=== PATIENT | female | born 1995 | race Caucasian/White ===

== ENCOUNTER → 2020-09-08 11:09 | Outpatient (CLI) | payer MEDICAID, SELFPAY ==
[2020-09-08 13:36] LABS: Absolute Lymphocyte Count 1.43 X10^3/uL (0.83-4.51); Absolute Neutrophil Count 5.1 X10^3/uL (2.0-7.7); Basophil# 0.02 X10^3/uL; Basophil% 0.3 % (0-1); Eosinophil# 0.06 X10^3/uL; Eosinophils% 0.8 % (0-5); Hematocrit 36.2 % (37-47); Hemoglobin 12.3 g/dL (12.0-15.0); Lymphocyte # 1.43 X10^3/ul (0.83-4.51); Lymphocyte % 20.1 % (19-41); Mean Corpuscular Hgb 31.5 pg (27.0-32.0); Mean Corpuscular Volume 92.6 fL (81-99); Mean Platelet Vol. 11.4 fl (6.2-12.0); Monocyte# 0.43 X10^3/uL; Monocyte% 6.1 % (0-10); NRBC Flagged by Analyzer 0 % (0-5); Neutrophil # 5.11 X10^3/uL (2.7-7.7); Platelet Count 230 K/mm3 (150-450); RBC Distribution Width CV 13.5 % (11.6-14.6); RBC Distribution Width SD 45.5 fl (35.1-43.9); Red Blood Count 3.91 M/mm3 (4.2-5.4); White Blood Count 7.1 K/mm3 (4.4-11.0)
[2020-09-08 14:25] LABS: HIV - WCH Non-Reactive (Nonreactive); Hepatitis B Surface Antigen Non-Reactive (Nonreactive); Hepatitis C Antibody Non-Reactive (Nonreactive); Rubella IgG Non-Reactive (Nonreactive); Syphilis Antibodies Non-reactive
[2020-09-10 04:08] LABS: Chlamydia By Nucleic Acid AMP Negative (Negative)
[2020-09-10 12:48] LABS: Gonococcus By Nucleic Acid AMP Negative (Negative)
[2020-09-13 17:18] LABS: HPV APTIMA, High Risk Positive (Negative); HPV Reflexed? YES, CHARGE PATIENT
== END ==
PROVIDERS: Visit Provider Student in an Organized Health Care Education/Training Program
DX: Z34.82 Encounter for supervision of other normal pregnancy, second trimester (principal)
CPT/HCPCS: 36415; 85025; 86703; 86762; 86780; 86803; 87086; 87340; 87491; 87591; 87624; 88175; G0145

== ENCOUNTER → 2020-09-21 14:29 | Outpatient (CLI) | payer MEDICAID, SELFPAY ==
[2020-09-27 17:15] LABS: CF, Screen Comment: (.)
== END ==
PROVIDERS: Visit Provider Student in an Organized Health Care Education/Training Program
DX: Z13.71 Encounter for nonprocreative screening for genetic disease carrier status (principal)
CPT/HCPCS: 36415; 81220

== ENCOUNTER → 2020-10-21 08:50 | Outpatient (CLI) | payer MEDICAID, SELFPAY ==
[2020-10-21 10:55] LABS: Glucose Challenge Gest 1H 50g 108 mg/dL (70-140)
== END ==
PROVIDERS: Visit Provider Student in an Organized Health Care Education/Training Program
DX: Z34.82 Encounter for supervision of other normal pregnancy, second trimester (principal)
CPT/HCPCS: 36415; 82950

== ENCOUNTER → 2020-11-18 10:27 | Outpatient (CLI) | payer MEDICAID, SELFPAY ==
[2020-11-18 10:37] LABS: Hematocrit 36.2 % (37-47); Hemoglobin 12.3 g/dL (12.0-15.0); Mean Corpuscular Hgb 31.9 pg (27.0-32.0); Mean Corpuscular Volume 93.8 fL (81-99); Platelet Count 219 K/mm3 (150-450); RBC Distribution Width CV 12.5 % (11.6-14.6); RBC Distribution Width SD 43.2 fl (35.1-43.9); Red Blood Count 3.86 M/mm3 (4.2-5.4); White Blood Count 7.6 K/mm3 (4.4-11.0)
[2020-11-18 10:39] LABS: Scan Indicated on CBC? Y/N NO
== END ==
PROVIDERS: Visit Provider Obstetrics & Gynecology
DX: Z34.83 Encounter for supervision of other normal pregnancy, third trimester (principal)
CPT/HCPCS: 36415; 85027

== ENCOUNTER 2020-12-20 17:45 | Outpatient (CLI) | payer MEDICAID, SELFPAY ==
[2020-12-20 17:59] VITALS: BP 123/68; PULSE 85; TEMP 37.3; O2SAT 97
[2020-12-20 18:01] VITALS: BMI 26.2
[2020-12-20 19:05] LABS: Bacteria 0 SEEN /hpf (None Seen); Mucous, Urine 0 SEEN /hpf (<or=2+); Red Blood Cells-Urine 0 SEEN /hpf (0-5); Squamous Epithelial Cells - UA 0 SEEN /hpf (5-10); White Blood Cells 0 SEEN /hpf (0-5)
[2020-12-20 19:08] LABS: Color, Urine Yellow (Yellow); Glucose, Dipstick Normal (Normal); Ketone-Dipstick Negative (Negative); Leukocyte Esterase-Dipstick Negative /ul (Negative); Nitrite-Dipstick Negative (Negative); Occult Blood-Urine Negative /ul (Negative); Protein-Dipstick Negative (Negative); Specific Gravity, Urine 1.015 (1.002-1.030); Urine Bilirubin Dipstick Negative (Negative); Urine Clarity Sl. Cloudy (Clear); Urine Urobilinogen Normal (Normal)
[2020-12-20 19:16] LABS: Amorphous Sediment 1+
--- NOTE | 2020-12-20 19:19 | OB.TRI.NOTE ---
HPI - General HPI Narrative OLLIE TURNER, is a 25 F G1 who presents at 33 1/7 weeks gestation with c/o L. lower abdominal pain and contractions. Pain started at 11 AM this morning and lasted x2 hours with spontaneous resolution. It again recurred this evening with severity 7 out of 10 and patient came to the hospital. She vomited x2. She had one prior similar episode approximately 2 weeks ago. She reports a history of a left ovarian cyst diagnosed by maternal- medicine. problem list: 1. Sick centimeter left ovarian cyst 2. Late to care 3. Rubella nonimmune 4. 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 Cystic fibrosis carrier negative, SMA carrier negative Maternal Data Information AMBREEN Calculator Estimated Delivery Date Method Current WG Current Estimate 02/06/21 Manual 33w 1d PFSH PFSH Home Medications prenat.vits,stephan,[id number] [ Vitamin] 1 tab PO DAILY 12/20/20 [History Last Taken 12/20/20 08:00] Allergy/AdvReac Type Severity Reaction Status Date / Time No Known Allergies Allergy Verified 12/20/20 18:07 Social History (Updated 12/20/20 @ 19:[address] Kell Montero MD) Smoking Status: Former smoker History 1 Elective abortions Hx Para 0 Spontaneous abortions Hx # Term Pregnancies Ectopic pregnancies Hx # Pregnancies Multiple births # of living children ROS Constitutional Constitutional: Denies chills or fever(s) Cardiovascular Cardiovascular: Denies chest pain Respiratory/Chest Respiratory/Chest: Denies dyspnea Genitourinary Genitourinary: Reports abdominal discomfort; Denies anuria, burning urination, difficulty urinating, dysuria, hematuria, low back pain or urinary frequency Musculoskeletal Musculoskeletal: Denies muscle spasms Physical Exam Const alert, oriented x3 and no apparent distress General Appearance: cooperative and comfortable HEENT normocephalic Resp normal respiratory effort, normal air movement and clear to auscultation bilaterally Cardio regular rate, regular rhythm, S1 normal heart sound and S2 normal heart sound GI normal to inspection, nondistended, normoactive bowel sounds, soft to palpation and non-distended Inspection: gravid no CVA tenderness Narrative: No suprapubic tenderness Back/Spine no CVA tenderness Neuro oriented x3 NST FHR Rate Baby A Baseline: 120 Variability:: Moderate Accelerations:: None Decelerations:: None NST Reactive:: Yes FHR Category:: Category I Uterine Activity:: 0-2/10 Assessment & Plan (1) Left sided abdominal pain: COMMENT: Dfdx UTI, ovarian torsion, muscle spasm PLAN: Benign abdominal exam U/A, Ucx sent CBC with diff f/u results
[2020-12-20 19:23] VITALS: PULSE 77; TEMP 36.6; O2SAT 98
[2020-12-20 19:25] VITALS: BP 117/70; PULSE 72
[2020-12-20 19:38] LABS: Absolute Lymphocyte Count 1.06 X10^3/uL (0.83-4.51); Absolute Neutrophil Count 7.1 X10^3/uL (2.0-7.7); Basophil# 0.02 X10^3/uL; Basophil% 0.2 % (0-1); Eosinophil# 0.02 X10^3/uL; Eosinophils% 0.2 % (0-5); Hematocrit 38.2 % (37-47); Hemoglobin 12.7 g/dL (12.0-15.0); Lymphocyte # 1.06 X10^3/ul (0.83-4.51); Lymphocyte % 12.1 % (19-41); Mean Corp Hgb Conc 33.2 g/dL (32-36); Mean Corpuscular Hgb 31.6 pg (27.0-32.0); Mean Platelet Vol. 11.1 fl (6.2-12.0); Monocyte# 0.57 X10^3/uL; Monocyte% 6.5 % (0-10); NRBC Flagged by Analyzer 0 % (0-5); Neutrophil # 7.05 X10^3/uL (2.7-7.7); Neutrophil % 80.3 % (47-70); Platelet Count 209 K/mm3 (150-450); RBC Distribution Width CV 12.6 % (11.6-14.6); RBC Distribution Width SD 43.7 fl (35.1-43.9); Red Blood Count 4.02 M/mm3 (4.2-5.4); White Blood Count 8.8 K/mm3 (4.4-11.0)
[2020-12-20 21:36] VITALS: TEMP 36.7
[2020-12-20 22:30] LABS: Fetal Fibronectin Negative
--- NOTE | 2020-12-22 21:37 | OB.TRI.NOTE ---
HPI - General HPI Narrative OLLIE TURNER, is a 25 F G1 @ 33 1/7 wga Pt later c/o contractions as well as right axillary swelling and soreness. Maternal Data Information AMBREEN Calculator Estimated Delivery Date Method Current WG Current Estimate 02/06/21 Manual 33w 3d PFSH PFSH Home Medications dicloxacillin 500 mg PO Q6H #28 cap 12/20/20 [Rx Last Taken Unknown] prenat.vits,stephan,[id number] [ Vitamin] 1 tab PO DAILY 12/20/20 [History Last Taken 12/20/20 08:00] Allergy/AdvReac Type Severity Reaction Status Date / Time No Known Allergies Allergy Verified 12/20/20 21:44 Social History (Updated 12/20/20 @ 19:[address] Kell Montero MD) Smoking Status: Former smoker History 1 Elective abortions Hx Para 0 Spontaneous abortions Hx # Term Pregnancies Ectopic pregnancies Hx # Pregnancies Multiple births # of living children Physical Exam Const alert, oriented x3 and no apparent distress Chest inspection of chest normal, inspection of breasts normal and palpation of breasts normal Chest Narrative: There is a 2cm erythematous nodule in the mid to upper axilla with tenderness Breast/Axilla Inspection: abnormal inspection of the axilla and other Breast/Axilla Palpation: abnormal palpation of the axilla Resp normal respiratory effort and normal air movement Narrative: 1/0/-4 . posterior, firm NST FHR Rate Baby A NST Reactive:: Yes FHR Category:: Category I Uterine Activity:: q2min Assessment & Plan (1) Mastitis during : PLAN: Exam c/w axillary boil - possible abscess of accessory breast tissue Rx Dicloxicillin (2) False labor before 37 completed weeks of gestation: PLAN: Cervix non-laboring FFN neg d/c'd home Charges/Coding Visit Charges Office Visits / Consults: [id number] OV L4 New
== END 2020-12-20 22:47 | disposition home or self-care (01) ==
LOC: WPOUT 17:58 → WP 17:58
PROVIDERS: Obstetrics & Gynecology; Visit Provider Obstetrics & Gynecology
DX: O26.893 Other specified pregnancy related conditions, third trimester (principal); R10.32 Left lower quadrant pain; Z3A.33 33 weeks gestation of pregnancy; Z87.891 Personal history of nicotine dependence
CPT/HCPCS: 36415; 59025; 59050; 81001; 82731; 85025; 87086; 99218; G0378

== ENCOUNTER → 2021-01-14 10:08 | Outpatient (CLI) | payer MEDICAID, SELFPAY | PROVIDERS: Visit Provider Obstetrics & Gynecology | DX: Z36.85 Encounter for antenatal screening for Streptococcus B (principal) | CPT/HCPCS: 87081 ==

== ENCOUNTER 2021-02-04 08:05 | Inpatient (IN) | payer MEDICAID, SELFPAY ==
[2021-02-04] VITALS (59 sets, daily range): BP systolic 92–142; BP diastolic 51–84; PULSE 65–119; RESP 14–18; TEMP 36.1–37.1; O2SAT 96–100; BMI 28.3
--- NOTE | 2021-02-04 | OV_PTH ---
PATIENT: OLLIE TURNER LOC: [facility] U#:[id number] AGE/SX: 25/ ROOM: WP006 RE02/04/[address]: Dr. Gerald Wesley MD : 1995 BED: 1 DIS: 02/06/2021 SPEC #: [id number] RECD: 02/07/21 11:58 STATUS: JESUS JULISSA #: [id number] DUANE: 02/04/21 00:[address]: Gerald Wesley DEPT: SURGICAL PATHOLOGY RECD BY: Remigio Cerna Tissues: OVARIAN CYST Procedures: Surgery Specimen Level V HEADER OPERATION: Left ovarian cyst excision PRE-OP DIAGNOSIS: Left ovarian cyst TISSUE SUBMITTED: 4-5 cm left ovarian cyst with about 1/3 ovary attached MICROSCOPIC DIAGNOSIS Left ovarian cyst, excision: Serous cystoadenofibroma. AM:yudith 02/08/2021 COMMENT Case has been reviewed in consultation with Dr. Morillo who concurs with the above diagnosis. IDC:[id number] MICROSCOPIC DESCRIPTION Slides are reviewed. GROSS DESCRIPTION Received in fixative is one container labeled with the patient's name and designated left ovarian cyst. The specimen consists of a collapsed cystic structure measuring 5.5 x 4.2 x 0.8 cm. The external surface is inked and the specimen serially sectioned to reveal a wall that varies in thickness from 0.1 to 0.2 cm. No nodularities are identified. The specimen is serially sectioned and totally submitted in four cassettes. / AM:yudith 02/07/21 TC:1 CPT: 44081
[2021-02-04 08:02] LABS: ROM Internal Control Test YES-OK TO RESULT pt. (Internal QC)
[2021-02-04 08:04] LABS: ROM Patient Test POSITIVE (Negative)
--- NOTE | 2021-02-04 08:56 | PCM.HP.BLA ---
History and Physical Date of Admission: 02/04/21 ACOG ANTEPARTUM RECORD - HISTORY AND PHYSICAL (02/04/2021) Name: LATISHA TURNER History of this : This is a 25 year old [id number] presents at 39 wks + 5 days gestation in active labor with spontaneous rupture membranes. OB Physician: Ceci Velázquez 's Physician: UNDECIDED ...................................................................... : 1995 Age: 25 Address: [address] [place] [address] Phone: ([phone] Insurance Carrier: [employer] CLAIMS DEPT [id number] Emergency Contact: MELLO MEJÍA [phone] ...................................................................... Final AMBREEN: 02/06/21 By Ultrasound: LMP PARITY: (G-Total Pregnancies P-Fullterm,Premature,Induced AB,Spont AB, Ectopics, Multiple,Living) AMBREEN CONFIRMATION: Final AMBREEN: 02/06/21 OB PROBLEM LIST: Declines genetic screening. Carrier screen drawn. EPDS on 09/21/2020 = 3 ECHO with MFM wnl L. ovarian cyst Late to care Plans to breastfeed - office class enc Prefers not to have an epidural, but not opposed. Childbirth class enc. Rubella Non-Immune, needs MMR pp ALLERGIES: No Known Allergies MEDICATIONS: 28 mg iron-800 mcg tablet One tablet by mouth once daily SOCIAL HISTORY: Smoking - used to smoke but quit Alcohol Use - denies drinking Diet - moderate, balanced diet Lifestyle - moderate stress lifestyle and single Exercise - active work Employer - [employer] in [place] Job Description - banquet food server Illicit Drug Use - denies use of street drugs Sexual Activity - ACTIVE ONE PARTNER Residence - Lives on her own Place of - [place], [place] Hours Worked - 28+ hrs per week Spouse-Sig Other Name - Mello Mejía Spouse-Sig Other Occupation - [employer] -- Cook Spouse-Sig Other Phone No - [phone] PRIOR DELIVERY HISTORY DEL DATE GEST LAB WT LB WT OZ TYPE ANES LABOR TX ANTEPARTUM FLOW CHART VISIT GE RTC FU F F MA U U DATE WK MD WKS HT PN HR M SS BP ED WT MA GL D EF ST __ ____ ___ __ __ ___ __ __ __ ___ __ __ __ ___ __ Jan 39 JM 1 39 V + + 120/80 sl 158 - - 2 60 -1 15 Jan 38 JMW 1 36 V + + 114/80 0 158 - - 2 25 -2 08 Jan 37 JMW + 130/72 sl 155 tr - 03 Jan 36 JM 1 36 V + + 116/74 sl 153 - - cl Dec 34 JM 2 34 V + + 122/76 0 153 tr - 06 Dec 32 JM 2 32 V + + 102/66 0 148 - - Dec 10 JM 2 30 - on + 108/76 sl 145 tr - 08 Dec 08 SHM 2 27 V + + 108/70 0 142 tr ne Oct 24 CM 4 24 + + 139/78 0 139 ne ne 21 September 20 CM 4 + + 116/68 0 132 ne ne ANTEPARTUM NOTE(S): Feb 03 2021: reviewed FM, SROM, and labor Jan 26 2021: Ctxs-occas, Good FM Jan 19 2021: Good FM, Feeling Well Jan 14 2021: GBS and LARC Dec 31 2020: back pain, George Weaver Dec 17 2020: Dec 02 2020: Good FM,Admits being tired, Nov 18 2020: Oct 21 2020: GCT and SMA redrawn today Sep 21 2020: glucola given COMPREHENSIVE ANTEPARTUM NOTE(S): Feb 03 2021: 39wk, no complaints. Jan 19 2021: H taken to OB.tkg Jan 14 2021: Latisha is here for a PNV at 36 wks. Good FM. Sl edema present in b/l ankles. Cramping and ctx's occasionally along w/ pelvic pressure. GBS today, consent signed. LARC reviewed, pt interested in Liletta IUD. Opted for a cervix check. After discussing IUD, pt has decided to wait for her 6 week visit to have Liletta placed. Jan 14 2021: 36 weeks, GBS collected today. Dec 31 2020: Latisha is here for a PNV at 34 weeks. Good FM. No edema present at this time. Mild back pain, occasional george weaver. No other concerns expressed. Dec 31 2020: 34 weeks, no complaints. GBS next visit. Dec 17 2020: Latisha presents today for PNV 32 wks +5day. Reports good FM. No edema present today. States she is staying well hydrated as well as keeping food down. Expressed she has some soreness in upper abdomen along with some back pain, she lays down and the pain subsides. Medications and allergies up to date. No other complaints or concerns expressed. Dec 17 2020: 32wks, no complaints. Dec 02 2020: 30 weeks, 1 hour GTT within normal limits. Nov 18 2020: Latisha is here for PNV. Nausea mostly subsided. Willl occasionally have episodes of heaving or vomiting associated with smells or certain foods. Otherwise, able to maintain diet/fluids. Having good FM. No edema present today. Urine tr/neg. LSS Nov 18 2020: Reports vomiting episodes 1-2x/month. Overall doing well. Considering childbirth class. Discussed class schedule. Pt continues working and will move in the next month. PTL, ROM, FM precautions discussed. SMA screen neg, Glucola wnl. CBC today. Oct 21 2020: Latisha is here for PNV. Had SMA redrawn and GCT completed today. Feeling well with good FM. Voices no concerns today. Urine neg/neg. LSS Oct 21 2020: 24/4w visit. Glucola done today, SMA redrawn. Echogenic focus in abdomen, unable to see 4chamber view questionable ASD - had ECHO with MFM, normal. No further follow up. F/u 4w. CM Sep 21 2020: Latisha is here for PNV following US. Genetics packet given. States she is feeling much better and feels she is past the N/V. No othe compliants or concerns. No edema present today. Having good FM. Glucola given with instructions for next apt. Voiced understanding. Urine neg/neg. LSS Sep 21 2020: 20/2w visit. Anatomy US done. Echogenic focus in abdomen, questionable bowel. Unable to see 4 chamber heart view, with questionable ASD. Discussed possible etiologies. Discussed repeating US in 4 weeks here in office and if persistent abnormaliites, inability to see 4chamber heart view will refer to MFM OR MFM referral now. Pt elects MFM referral now. Denies genetic hx. Desires carrier screening, Sep 21 2020: Latisha is here for her NOB visit following her comprehensive US and PNV, she is accompanied by SO/FOB, Mello Mejía. He seems to be supportive, and this is his first child. They both report good family support. Latisha lives on her own, but they state that they are planning to move in together. Latisha is a 25 year old with an AMBREEN of 02/06/2021, current GA is 20 w 2 d. She states that she is fee Sep 08 2020: Latisha is a 25 yr old GR 1, here w/FOB, 24 yr old Miles Mejía for Missed Menses. She had a period sometime in April, unsure of date. Reports being seeing several x @ [facility], given AMBREEN 02/06/21 which makes her 18 wks 3 days; she is feeling FM. Hx Nausea and Vomiting, but has resolved. No cramping. No bleeding. Taking a PNV. No medical problems. No surgeries. No Hx Depress REVIEW OF SYSTEMS: GENERAL - Denies fever, or chills SKIN - Denies rash, new skin lesions, or change in moles EYES - Denies blurred vision, or change in visual acuity EARS - Denies ear pain, or difficulty hearing NOSE - Denies nasal congestion, discharge, or bleeding MOUTH - Denies sore throat, or difficulty swallowing NECK - Denies pain or swelling RESPIRATORY - Denies shortness of breath, cough, wheezing CARDIOVASCULAR - Denies palpitations, chest pain, orthopnea, PND, peripheral edema, syncope or claudication GASTROINTESTINAL - Denies nausea, vomiting, diarrhea, constipation, Denies abdominal pain, melena and or bright red blood GENITOURINARY - Denies dysuria, frequency of urination, urgency, or hesitancy MUSCULOSKELETAL - Denies joint or muscle pain, or back pain NEUROLOGICAL - Denies localized numbness, weakness, or tingling PSYCHIATRIC - Denies depression, anxiety, substance abuse or suicide attempts ENDOCRINE - Denies heat or cold intolerance, weight loss or gain, increasing thirst HEMATO-IMMUNOLOGIC - Denies easy bruising, bleeding, oral ulcerations or recurrent infections GENETICS SCREENING: Age 35+ years: No Thalassemia: No Neural Tube Defect: No Down Syndrome: No SUMAYA-SACHS: No Sickle Cell Disease: No Hemophilia: No Musc. Dystrophy: No Cystic Fibrosis: No-declines screening [place] Chorea: No Mental Retardation: No Fragile X: No Other genetic: No Other defects: No SABs/still births: No Drugs since LMP: No INFECTION HISTORY: High risk AIDS: No High risk Hepatitis: No Exposed to TB: No Exposed to Herpes: No Rash/viral illness since LMP: No History of STD: No MENSTRUAL HISTORY: *Menarche (Age Onset): 15* PAST SUMMARY: PARITY: 1. Total Pregnancies............ 1 2. Full Term Pregnancies........ 0 3. Premature.................... 0 4. Abortions - Induced.......... 0 5. Abortions - Spontaneous...... 0 6. Ectopics..................... 0 7. Multiple Births.............. 0 8. Living Children.............. 0 PHYSICAL EXAMINATION General Appearence: 25 yo female in no acute distress Vital Signs: AF, VSS Heart: RRR without rubs or gallops Lungs: CTA x 2 Breasts: deferred Abdomen: gravid Pelvis: Cervix: 2-3/60 gross rupture of membranes Presentation: cephalic Station: -2 Fetus: Size: AGA Movement: present Heart: present LAB TEST(S) ORDERED SINCE:05/12/20 02/04/2021 (ROM) RUPTURE OF MEMBRANES 01/17/2021 RULE OUT BETA STREP (GRP. B) 12/23/2020 URINE CULTURE 12/20/2020 URINALYSIS, COMPLETE 12/20/2020 FIBRONECTIN 12/20/2020 CBC W/DIFF, AUTOMATED 11/18/2020 CBC-COMPLETE BLOOD CNT NO DIFF 11/03/2020 MISCELLANEOUS LAB PROCEDURE 10/21/2020 GLUCOSE CHALLENGE GEST 1H 50G 09/29/2020 MISCELLANEOUS LAB PROCEDURE 09/27/2020 CYSTIC FIBROSIS PROF 09/13/2020 PAP I-G W/RFX HRHPV-APTIMA 09/10/2020 URINE CULTURE 09/10/2020 CHLAMYDIA/GC BEN APTIMA 09/08/2020 RUBELLA IGG 09/08/2020 T AND S-NO CHARGE W/PNP 09/08/2020 L509.8000 09/08/2020 HIV - [facility] 09/08/2020 HEPATITIS C ANTIBODY 09/08/2020 HEPATITIS B SURFACE ANTIGEN 09/08/2020 CBC W/DIFF, AUTOMATED == ==== Order Observation Description Value Ref_Range A* Site == ==== (ROM) RUPTURE O NOTE DIAZ (ROM) RUPTURE O ROM POSITIVE Negative A ML Amniotic fluid present indicates rupture of Membranes. RESULTS CALLED TO DEBBIE QUESADA (OB) 02/04/21 0802 Selwyn Munoz. REPORT READ BACK BY SAME. RULE OUT BETA S NOTE DIAZ FIBRONECT NOTE DIAZ FIBRONECT FFIBRONECTIN Negative ML CBC W/DIFF, AUT NOTE DIAZ CBC W/DIFF, AUT WBC 8.8 K/mm3 4.4-11.0 ML CBC W/DIFF, AUT RBC 4.02 M/mm3 4.2-5.4 L ML CBC W/DIFF, AUT HGB 12.7 g/dL 12.0-15.0 ML CBC W/DIFF, AUT HCT 38.2 37-47 ML CBC W/DIFF, AUT MCV 95.0 fL 81-99 ML CBC W/DIFF, AUT MCH 31.6 pg 27.0-32.0 ML CBC W/DIFF, AUT MCHC 33.2 g/dL 32-36 ML CBC W/DIFF, AUT RDW CV 12.6 11.6-14.6 ML CBC W/DIFF, AUT RDW SD 43.7 fl 35.1-43.9 ML CBC W/DIFF, AUT PLT 209 K/mm3 150-450 ML CBC W/DIFF, AUT MPV 11.1 fl 6.2-12.0 ML CBC W/DIFF, AUT NEUT% 80.3 47-70 H ML CBC W/DIFF, AUT LY% 12.1 19-41 L ML CBC W/DIFF, AUT MONO% 6.5 0-10 ML CBC W/DIFF, AUT EO% 0.2 0-5 ML CBC W/DIFF, AUT BASO% 0.2 0-1 ML CBC W/DIFF, AUT IG% 0.700 0.0-0.9 ML IG% - Immature Granulocytes (promyelocytes, myelocytes and metamyelocytes) > 1% indicates that a LEFT SHIFT is Present. CBC W/DIFF, AUT ABSOLUTE NEUT 7.1 X10 3/uL 2.0-7.7 ML CBC W/DIFF, AUT ABSOLUTE LYMPH 1.06 X10 3/uL 0.83-4.51 ML CBC W/DIFF, AUT NUCLEATED RBC 0 0-5 ML URINE CULTURE NOTE DIZA URINALYSIS, COM NOTE DIAZ URINALYSIS, COM WBC 0 SEEN /hpf 0-5 ML URINALYSIS, COM RBC 0 SEEN /hpf 0-5 ML URINALYSIS, COM EPI,SQUAMOUS 0 SEEN /hpf 5-10 ML URINALYSIS, COM BACTERIA 0 SEEN /hpf None Seen ML URINALYSIS, COM MUCUS 0 SEEN /hpf <or=2+ ML URINALYSIS, COM AMORPHOUS 1+ ML CBC-COMPLETE BL NOTE DIAZ CBC-COMPLETE BL WBC 7.6 K/mm3 4.4-11.0 ML CBC-COMPLETE BL RBC 3.86 M/mm3 4.2-5.4 L ML CBC-COMPLETE BL HGB 12.3 g/dL 12.0-15.0 ML CBC-COMPLETE BL HCT 36.2 37-47 L ML CBC-COMPLETE BL MCV 93.8 fL 81-99 ML CBC-COMPLETE BL MCH 31.9 pg 27.0-32.0 ML CBC-COMPLETE BL MCHC 34.0 g/dL 32-36 ML CBC-COMPLETE BL RDW CV 12.5 11.6-14.6 ML CBC-COMPLETE BL RDW SD 43.2 fl 35.1-43.9 ML CBC-COMPLETE BL PLT 219 K/mm3 150-450 ML CBC-COMPLETE BL MPV 10.0 fl 6.2-12.0 ML MISCELLANEOUS L NOTE DIAZ MISCELLANEOUS L MISC LAB TEST ML TEST RESULT LIMITS SMN1 Copy Number Analysis Genetic Counselor: Not applicable Specimen Type: Peripheral Blood Ethnicity: Not Provided Indication: Not Provided SMA Results: Note Disease (Gene) Results Interpretation Spinal muscular atrophy NEGATIVE 3 (or more) copies of (SMN1) SMN1. This result reduces but does not eliminate the risk to be a carrier of SMA. Information regarding clinical indication may provide a more detailed interpretation. For ethnic-specific risk revisions with no family history see Information Table. General Comments Note Genetic counseling services are available. To access [employer] [facility] please visit [email or web address] or call [phone] ([phone]). Additional Clinical Info Note Spinal muscular atrophy (SMA) is an autosomal recessive neurodegenerative disorder with variable age at onset and severity, characterized by progressive degeneration of the lower motor neurons in the spinal cord and brain stem, leading to muscle weakness, and in its most common form, respiratory failure by age two. Complications of SMA may include poor weight gain, sleep difficulties, pneumonia, scoliosis, and joint deformities. In severely affected individuals, abnormal ultrasound findings may include congenital joint contractures, polyhydramnios, and decreased movement (Maye, PMID:[id number]). Treatment is supportive. Targeted therapies may be available for some individuals. Approximately 94% of affected individuals have 0 copies of the SMN1 gene; in these individuals an increase in the number of copies of the SMN2 gene correlates with reduced disease severity (Piter, PMID:[id number]). Individuals with one copy of the SMN1 gene are predicted to be carriers of SMA; those with two or more copies have a reduced carrier risk. For individuals with two copies of the SMN1 gene, the presence or absence of the variant c.*3+80T>G correlates with an increased or decreased risk, respectively, of being a silent carrier (2+0) (Nelson, PMID [id number]; Petar, PMID [id number]). Method/Limitations: Note Spinal muscular atrophy: The copy number of SMN1 exon 7 is assessed relative to internal standard reference genes by quantitative polymerase chain reaction (qPCR). A mathematical algorithm calculates 0, 1, 2 and 3 copies with statistical confidence. When no copies of SMN1 are detected, the primer and probe binding sites are sequenced to rule out variants that could interfere with copy number analysis and SMN2 copy number is assessed by digital droplet PCR analysis relative to an internal standard reference gene. For carrier screening, when two copies of SMN1 are detected, allelic discrimination qPCR targeting c.*3+80TG in SMN1 is performed. Limitations: False positive or false negative results may occur for reasons that include genetic variants, blood transfusions, bone marrow transplantation, somatic or tissue-specific mosaicism, mislabeled samples, or erroneous representation of family relationships. Information Table Note SMA risk reductions for individuals with no family history Disorder (Gene) Reference Sequence Spinal Muscular Atrophy (SMN1) [id number] Population Detection Pre-test Post-test risk of Post-test Rate carrier being a carrier risk of (Copy risk with 2 copies being a number + carrier SNP) POSITIVE NEGATIVE with 3 for the for the copies c.*3+80T>G c.*3+80T>G SNP SNP 90.3% 1 in 72 1 in 34 1 in 375 1 in 4200 Grenadian Ashkenazi 92.8% 1 in 67 High risk 1 in 918 1 in 5400 Mandaeism 93.6% 1 in 59 High risk 1 in 907 1 in 5600 95.0% 1 in 47 1 in 29 1 in 921 1 in 5600 92.6% 1 in 68 1 in 140 1 in 906 1 in 5400 Mixed or For counseling purposes, consider using the Other ethnic ethnic background with the most conservative Background risk estimates. includes carriers who are silent carriers (2+0) and Carriers with a pathogenic variant not detected in this Assay Petar, PMID [id number]; Teresa, PMID [id number]; Lea, PMID [id number] Disclaimer: Note This test was developed and its performance characteristics determined by [facility]. It has not been cleared or approved by the Food and Drug Administration. [employer] is a business unit of [facility], a wholly-owned subsidiary of [employer]. [employer](R) is a registered service low of [employer]. Testing performed at [facility], [address] [facility], [place] [address] Caroline Cunningham, PhD,[facility], Aids Social Worker This document contains private and confidential information protected by state and federal law. If you have received this document in error, please call SMN1 Copy Number Analysis PDF Director Review Note Belle S Mateo, Ph.D., [facility] TESTING PERFORMED AT [facility]. ORIGINAL REPORT ON FILE IN LAB CONTAINS ADDITIONAL TEST SITE INFORMATION. GLUCOSE CHALLEN NOTE DIAZ GLUCOSE CHALLEN GLU GEST 50G 1H 108 mg/dL 70-140 ML MISCELLANEOUS L NOTE DIAZ MISCELLANEOUS L MISC LAB TEST ML Scanned image report available in EMR CYSTIC FIBROSIS NOTE DIAZ CYSTIC FIBROSIS CF, SCREEN Comment: . LCI RESULTS: Negative for 32 mutations analyzed INTERPRETATION: This individual is negative for the mutations analyzed. This negative result may need further interpretation depending on the clinical indication. This result reduces but does not eliminate the risk to be a CF carrier. COMMENTS: The detection rate varies with ethnicity and is listed below. The presence of an undetected mutation in the CF gene cannot be ruled out. In the absence of family history, the remaining risk that a person with a negative result could have at least one CF mutation is listed in the table. If there is a family history of CF, these risk figures do not apply. As detailed information regarding this individual's family history would permit a more accurate assessment of this individual's risk to be a carrier of cystic fibrosis, please contact [employer] at for a revised report. Mutation Detection Detection rates are based on mutation Rates among Ethnic frequencies in patients affected with Groups cystic fibrosis. Among individuals with an atypical or mild presentation (e.g. congenital absence of the vas deferens, pancreatitis) detection rates may vary from those provided here: Carrier risk reduction when no family history Detection Ethnicity Rate Ashkenazi 06/08 to 97% Mandaeism 06/07 to 90% (non-) -Grenadian to 69% 46 to 73% to 55% This interpretation is based on the clinical and family relationship information provided and the current understanding of the molecular genetics of this condition. MUTATIONS ANALYZED: G85E V520F D1651G 2183AA to G R117H G542X E5398I 2184delA R334W S549N 394delTT 2789+5G to A R347H S549R 621+1G to T 3120+1G to A R347P G551D 711+1G to T 3659delC A455E R553X 1078delT 3849+10kbC to T QfeueU026 R560T 1717-1G to A 3876delA WatifV206 B1573G 1898+1G to A 3905insT METHODS/LIMITATIONS: DNA is isolated from the sample and tested for the 32 CF mutations on the [place] Array Platform ([employer]). Regions of the CFTR gene are amplified enzymatically and subjected to a solution-phase multiplex allele-specific primer extension with subsequent hybridization to a bead array and fluorescence detection. Polymorphisms F508C, I506V and I507V are included in this panel to rule out false positive [id number] homozygotes. Reflex testing of 5T is included in the panel for R117H interpretation. False positive or negative results may occur for reasons that include genetic variants, blood transfusions, bone marrow transplantation, erroneous representation of family relationships or contamination of a sample with maternal cells. REFERENCES: 1. Updates on Carrier Screening for Cystic Fibrosis. (2011) Am J Ob Gynecol 117(4):2054-0548 2. Roberto, et al. (2004) [employer] Med 6:387-91 3. Clementina, et al. (2002) [employer] Med 4:379-391 4. Preconception and carrier screening for cystic fibrosis: (2001)ACOG.ACMG publication Results Released By: Mercy Medellin, Ph.D., Diesel Powerplant Mechanic Helper Released By: Mercy Medellin, Ph.D., Director The assay provides information intended to be used for carrier screening in adults of reproductive age, as an aid in screening, and as a confirmatory test for another medically established diagnosis in newborns and children. The test is not indicated for use in diagnostic testing, pre-implantation screening, or for any stand-alone diagnostic purposes without confirmation by another medically established diagnostic product or procedure. Performed at: [facility] [address] [place], [place] [id number] Sales Merchandising Specialist: Ebonie Choi [facility], Phone: [phone] URINE CULTURE NOTE DIAZ PN N [facility]~[address] [place] [place], [address]~ T AND AB SCREEN GEL NEGATIVE ML HEPATITIS C ANT NOTE DIAZ HEPATITIS C ANT HEPATITIS C AB Non-Reactive Nonreactive ML Non Reactive: < 0.8 Equivocal: >/= 0.8 to < 1.0 Reactive: >/= 1.0 The CDC recommends that a reactive/equivocal HCV antibody result be followed up by the HCV Nucleic Acid Amplification test (309123) HEPATITIS B MANASA NOTE DIAZ HEPATITIS B MANASA HEP B SURF AG Non-Reactive Nonreactive ML HIV - [facility] NOTE DIAZ HIV - H HIV Non-Reactive Nonreactive ML L509.8000 NOTE DIAZ L509.8000 SYPHILIS ABS Non-reactive ML RUBELLA IGG NOTE DIAZ RUBELLA IGG RUBELLA IGG Non-Reactive Nonreactive ML Antibody Results Interpretation of Immune Status Non Reactive Presumed Non-Immune Equivocal Equivocal Reactive Presumed Immune CBC W/DIFF, AUT NOTE DIAZ CBC W/DIFF, AUT WBC 7.1 K/mm3 4.4-11.0 ML CBC W/DIFF, AUT RBC 3.91 M/mm3 4.2-5.4 L ML CBC W/DIFF, AUT HGB 12.3 g/dL 12.0-15.0 ML CBC W/DIFF, AUT HCT 36.2 37-47 L ML CBC W/DIFF, AUT MCV 92.6 fL 81-99 ML CBC W/DIFF, AUT MCH 31.5 pg 27.0-32.0 ML CBC W/DIFF, AUT MCHC 34.0 g/dL 32-36 ML CBC W/DIFF, AUT RDW CV 13.5 11.6-14.6 ML CBC W/DIFF, AUT RDW SD 45.5 fl 35.1-43.9 H ML CBC W/DIFF, AUT PLT 230 K/mm3 150-450 ML CBC W/DIFF, AUT MPV 11.4 fl 6.2-12.0 ML CBC W/DIFF, AUT NEUT% 72.0 47-70 H ML CBC W/DIFF, AUT LY% 20.1 19-41 ML CBC W/DIFF, AUT MONO% 6.1 0-10 ML CBC W/DIFF, AUT EO% 0.8 0-5 ML CBC W/DIFF, AUT BASO% 0.3 0-1 ML CBC W/DIFF, AUT IG% 0.700 0.0-0.9 ML IG% - Immature Granulocytes (promyelocytes, myelocytes and metamyelocytes) > 1% indicates that a LEFT SHIFT is Present. CBC W/DIFF, AUT ABSOLUTE NEUT 5.1 X10 3/uL 2.0-7.7 ML CBC W/DIFF, AUT ABSOLUTE LYMPH 1.43 X10 3/uL 0.83-4.51 ML CBC W/DIFF, AUT NUCLEATED RBC 0 0-5 ML PAP I-G W/RFX H NOTE DIAZ PAP I-G W/RFX H DIAG Comment . A LCI EPITHELIAL CELL ABNORMALITY. ATYPICAL SQUAMOUS CELLS OF UNDETERMINED SIGNIFICANCE (ASC-US). PAP I-G W/RFX H ADEQ Comment . LCI Satisfactory for evaluation. No endocervical component is identified. PAP I-G W/RFX H PERFORM Comment . LCI Sydnee Dutta, Mine Supervisor (ASCP) PAP I-G W/RFX H SIGN Comment . LCI Candy Renteria MD, Pathologist PAP I-G W/RFX H PATH.PROV.IDC-9 Comment . LCI R87.610 This liquid based ThinPrep(R) pap test was screened with the use of an image guided system. PAP I-G W/RFX H COMM . . LCI PAP I-G W/RFX H PAPSMR Comment . LCI The Pap smear is a screening test designed to aid in the detection of premalignant and malignant conditions of the uterine cervix. It is not a diagnostic procedure and should not be used as the sole means of detecting cervical cancer. Both false-positive and false-negative reports do occur. PAP I-G W/RFX H HPV RFLX Comment . LCI See below for HPV testing results. PAP I-G W/RFX H HPV APTIMA, HR Positive Negative A LCI This nucleic acid amplification test detects fourteen high- risk HPV types (16,18,31,33,35,39,45,51,52,56,58,59,66,68) without differentiation. Performed at: [address] [id number] Sales Merchandising Specialist: Gaye Shipman MD, Phone: [phone] Performed at: =[address] [id number] Sales Merchandising Specialist: Gaye Shipman MD, Phone: [phone] CHLAMYDIA/GC NA NOTE DIAZ CHLAMYDIA/GC NA CHLAMY,NUC ACID Negative Negative LCI CHLAMYDIA/GC NA GC BY NUC ACID Negative Negative LCI Performed at: =[address] [id number] Sales Merchandising Specialist: Gaye Shipman MD, Phone: [phone] Group B Beta Streptococcus is not isolated. Culture exhibits no growth. Culture exhibits no growth. A POSITIVE == ==== Impression /Plan: 39 wks + 5 days intrauterine in active labor with gross rupture of membranes. Preparations in progress for delivery.
[2021-02-04 09:36] LABS: Absolute Lymphocyte Count 1.51 X10^3/uL (0.83-4.51); Absolute Neutrophil Count 5.7 X10^3/uL (2.0-7.7); Basophil# 0.02 X10^3/uL; Basophil% 0.3 % (0-1); Eosinophil# 0.07 X10^3/uL; Eosinophils% 0.9 % (0-5); Hematocrit 41.4 % (37-47); Hemoglobin 14.2 g/dL (12.0-15.0); Lymphocyte # 1.51 X10^3/ul (0.83-4.51); Mean Corp Hgb Conc 34.3 g/dL (32-36); Mean Corpuscular Hgb 32.1 pg (27.0-32.0); Mean Corpuscular Volume 93.7 fL (81-99); Mean Platelet Vol. 13.1 fl (6.2-12.0); Monocyte# 0.61 X10^3/uL; Monocyte% 7.7 % (0-10); NRBC Flagged by Analyzer 0 % (0-5); Neutrophil # 5.65 X10^3/uL (2.7-7.7); Neutrophil % 71.2 % (47-70); POSITIVE COUNT YES; Platelet Count 137 K/mm3 (150-450); RBC Distribution Width CV 12.8 % (11.6-14.6); Red Blood Count 4.42 M/mm3 (4.2-5.4); White Blood Count 7.9 K/mm3 (4.4-11.0)
[2021-02-04 09:59] LABS: Differential Comment SCANNED; Differential Indicated SCAN CRITERIA MET; Platelet Estimate ADEQUATE (ADEQ); Platelet Morphology LARGE
[2021-02-04 10:03] LABS: Amphetamine Urine VISTA NEGATIVE (<1000 ng/mL); Barbiturate Urine VISTA NEGATIVE (< 200 ng/mL); Benzodiazepine Urine VISTA NEGATIVE (< 200 ng/mL); Cocaine Urine VISTA NEGATIVE (< 300 ng/mL); Ecstacy Urine VISTA NEGATIVE (< 500 ng/mL); Methadone Urine VISTA NEGATIVE (< 300 ng/mL); PCP Urine VISTA NEGATIVE (< 25 ng/mL); THC Urine VISTA NEGATIVE (< 50 ng/mL); Vista UDS pH Range 6
[2021-02-04] MEDS: Lactated Ringers 1,000 ML 50 ML IV (10:37)
[2021-02-04] MEDS: Lactated Ringers 500 ML 999 ML IV ×3 (10:41→20:40)
[2021-02-04] MEDS: fentaNYL 100 MCG/2 ML Ampul IV ×2 (12:51→15:12)
[2021-02-04] MEDS: Amnioinfusion- 0.9% NS 1,000 ML IV.SOLN. 1000 ML INTRA-UTER (14:14)
[2021-02-04] MEDS: Oxytocin 30 units/NS 500 ml 30 UNITS/500 ML IV.SOLN IV (15:01)
[2021-02-04] MEDS: fentaNYL-bupivacaine (epidural) 100 ML BAG EPIDURAL (19:57)
--- NOTE | 2021-02-04 21:28 | PN.OBGYN_ITS ---
Subjective Subjective Patient has progressed to 4 to 5 cm / 60% effaced/-2 station and has remained at this dilation and station for approximately 8 hours. Intrauterine pressure catheter in place shows adequate contractions for the most part although deep variable decelerations are noted with an occasional late component. Moderate variability. We are unable to increase Pitocin due to intolerance of the baby. We have discussed failure to progress and descend for about 8 hours and I recommended we proceed with section for failure to progress. Discussed risks, benefits, and alternatives and patient and her family desire that we proceed. Objective Data Objective Data Vital Signs: Vital Signs Temp Pulse Resp BP Pulse Ox 97.2 F L 101 H 14 135/69 H 99 02/04/21 20:36 02/04/21 21:26 02/04/21 18:03 02/04/21 20:55 02/04/21 21:26 Oxygen Delivery Method Room Air Weight: 155 lb Body Mass Index (BMI) 28.3 Intake & Output: Intake and Output for Last 24 Hours 02/02/21 02/03/21 02/04/21 23:59 23:59 23:59 Intake Total 3788.16 / 3788.16 Balance 3788.16 / 3788.16 Lab / Micro Data Result Diagrams: 02/04/21 09:20 Labs: Laboratory Results - last 24 hr 02/04/21 07:35: Vag Amniotic Fld Detect POSITIVE H 02/04/21 09:20: WBC 7.9, RBC 4.42, Hgb 14.2, Hct 41.4, MCV 93.7, MCH 32.1 H, MCHC 34.3, RDW Std Deviation 44.0 H, RDW Coeff of Kareem 12.8, Plt Count 137 L, MPV 13.1 H, Immature Gran % (Auto) 0.900, Neut % (Auto) 71.2 H, Lymph % (Auto) 19.0, [place] % (Auto) 7.7, Eos % (Auto) 0.9, Baso % (Auto) 0.3, Absolute Neuts (auto) 5.7, Absolute Lymphs (auto) 1.51, Nucleated RBC % 0, Differential Comment SCANNED, Platelet Estimate ADEQUATE, Plt Morphology Comment LARGE 02/04/21 09:20: Blood Type A POSITIVE, Antibody Screen NEGATIVE 02/04/21 09:35: Urine Opiates Screen NEGATIVE, Urine Methadone Screen NEGATIVE, Ur Barbiturates Screen NEGATIVE, Ur Phencyclidine Scrn NEGATIVE, Ur Amphetamines Screen NEGATIVE, U Methamphetamin-MDMA NEGATIVE, U Benzodiazepines Scrn NEGATIVE, Urine Cocaine Screen NEGATIVE, U Cannabinoids Screen NEGATIVE, Ur Drug Screen Comment Micro: Microbiology 02/04/21 09:20 Nasal Secretion SARS-CoV-2 Antigen (Rapid) - Final
[2021-02-04] MEDS: Acetaminophen 500 MG Tablet PO (21:36)
--- NOTE | 2021-02-04 21:38 | PCM.OPRPT ---
Problems Associated Problem List Diagnoses (1) Failure to progress in labor: Report of Operation Date of Procedure: 02/04/21 Pre-Operative Diagnosis: Failure to Progress in Labor Post-Operative Diagnosis: Failure to Progress in Labor; Left Ovarian Cyst Surgery/Procedure Performed:: Primary Low Transverse Cervical Section; Left Ovarian Cystectomy Description of Surgical Findings:: Viable male with Apgars of 9/9 in occiput posterior presentation with clear amniotic fluid and normal three-vessel placenta. Cord around the neck x1 tight. 4 to 5 cm left ovarian cyst. Surgeon: Gerald Wesley commercial roofing estimator: Jyothi Bajwa Type of Anesthesia: Epidural (With Duramorph) Anesthesiologist: Hiwot Simms Drains: Colin to straight drain Estimated Blood Loss (mL): 500 cc Fluids Replaced: Crystalloid Description of Procedure: Surgeon: Gerald Wesley MD, FACOG Indication: This is a 25-year-old who presented in active labor this morning with spontaneous rupture of membranes. She progressed to 4 to 5 cm and 60% effaced with -2 station but failed to progress past this dilation and station for approximately 8 hours. Given this it was decided to proceed with primary section for failure to progress. care has otherwise been uneventful. The patient and her family have been counseled regarding the risk and indications of this procedure including the possibility of bleeding infection and injury to surrounding structures such as bowel bladder. All questions were answered. Procedure: Patient was taken to the operating room where after epidural anesthesia was redosed, the patient was prepped and draped in usual sterile fashion; a Colin catheter had been previously placed. The abdomen was entered through a Pfannenstiel incision and peritoneum was entered bluntly. After developing a bladder flap on the lower uterine segment a low transverse incision was made on the uterus and head was easily delivered onto the operative field the nose mouth and oropharynx were bulb suctioned. Subsequently a viable male was born with Apgars of 9/9 and an occiput posterior presentation. The was noted to cry move all extremities vigorously on the operative field. The umbilical cord was doubly clamped and ligated and infant handed to the nursery personnel who were present for the delivery. Placenta was delivered and noted to be 3 vessels and normal. Uterus was exteriorized and remaining placental tissue was removed. The uterus was then closed in 2 layers first with running locked 0 Vicryl suture followed by a second imbricating layer with 0 Vicryl suture. 0 Vicryl suture was then used in a horizontal mattress interrupted fashion to affect final hemostasis of the uterine incision line. Normal fallopian tubes and ovaries were visualized except for a 4 to 5 cm left ovarian cyst. An incision was made with a knife over the cyst and attempts were made to shell out the cyst. The lateral sidewall of the cyst could not be shelled out so approximately one third of the ovarian tissue was removed with the cyst. 3-0 Vicryl suture was used in horizontal mattress and [id number] fashion to affect hemostasis of the cyst bed and cautery was also used to help with some oozing. It was felt that the entirety of the ovarian cyst was removed. The uterus was returned to the pelvis. Hemostasis was noted and rectus abdominis muscles were reapproximated in the midline with interrupted Number 0 Vicryl suture in a horizontal mattress fashion. Fascia was closed with running Number 1 PDS Strata fix suture. Subcutaneous tissue was irrigated with copious amounts of saline solution and then closed with running 3-0 Vicryl suture. Skin was closed with 4-0 monocryl suture in a running subcuticular fashion. Steri strips and a Mepilex dressing were placed across the incision. The patient tolerated the procedure well and was taken to the recovery room in satisfactory condition. Sponge, needle, and instrument counts were all reportedly correct. EBL was less than 500 cc. Ancef 2 gms IV was given prior to the procedure. Spicemen to Pathology: Left ovarian cyst Grafts/Implants Used: None Complications None Admit VTE Documentation VTE Present on Admission: Yes VTE Mechan Device Prophylaxis: SCD's
--- NOTE | 2021-02-04 21:45 | PCM.DC ---
Discharge Instructions Diet Discharge Diet: No restrictions Activity Discharge Activity: May Shower and May Take a Tub Bath May resume sexual activity in: 4-6 weeks Lifting Restrictions: 20 pounds Dressing / Incision Call your doctor if your incision/area has: Continuous Slow Oozing, Sudden Increased Bleeding, Increased Pain/ Swelling, Increased Redness and Foul Smelling Discharge Call your doctor if you observe: Fever of 101 or Higher, Inability to urinate, Inability to have a bowel movement and Using more than 1 pad per hour Follow Up Care Please Follow Up With: Gerald Wesley MD When: Call [phone] for appointment to be seen in 2 weeks. Test Results: Test results from this visit will be discussed in further detail at your follow-up appointment, if applicable. Discharge Plan Admission Admit Date/Time: 02/04/21 08:05 Primary Reason for Your Visit: Delivery Attending Provider: Gerald Wesley Discharge Orders/Prescriptions Prescriptions: New oxycodone 5 mg capsule 5 mg PO Q6H PRN (Reason: pain) 7 Days Qty: 10 RF: 0 docusate sodium 100 mg tablet 100 mg PO BID PRN (Reason: constipation) Qty: 60 RF: 1 Disposition Disposition (needs filled in before D/C Order can be placed): Home, Self Care
[2021-02-04] MEDS: Sodium Citrate/Citric Acid 30 ML UDC PO (22:09)
[2021-02-04] MEDS: Cefazolin 2 GM in 0.9% Normal Saline 100 ML IV (22:25)
[2021-02-04] MEDS: Oxytocin 30 units/NS 500 ml 30 UNITS/500 ML IV.SOLN 167 UNITS IV (23:40)
[2021-02-05] VITALS (18 sets, daily range): BP systolic 106–135; BP diastolic 58–85; PULSE 79–101; RESP 16–18; TEMP -13.4–37.1; O2SAT 95–99
[2021-02-05 00:13] LABS: Pathology Specimen OB SEE PATHOLOGY REPORT
[2021-02-05] MEDS: Ketorolac 30 MG/ML Syringe IV ×4 (00:29→18:38)
[2021-02-05] MEDS: Lactated Ringers 1,000 ML 100 ML IV (02:59)
[2021-02-05] MEDS: Acetaminophen 500 MG Tablet 1000 MG PO ×4 (04:07→22:16)
[2021-02-05] MEDS: Cefazolin 1 GM/50 ML BAG IV ×2 (05:52→14:05)
[2021-02-05 09:28] LABS: Hematocrit 35.3 % (37-47); Hemoglobin 11.9 g/dL (12.0-15.0); Mean Corp Hgb Conc 33.7 g/dL (32-36); Mean Corpuscular Hgb 31.8 pg (27.0-32.0); Mean Corpuscular Volume 94.4 fL (81-99); Mean Platelet Vol. 11.1 fl (6.2-12.0); Platelet Count 159 K/mm3 (150-450); RBC Distribution Width CV 12.8 % (11.6-14.6); RBC Distribution Width SD 44.6 fl (35.1-43.9); Red Blood Count 3.74 M/mm3 (4.2-5.4); White Blood Count 12.7 K/mm3 (4.4-11.0)
--- NOTE | 2021-02-05 09:40 | PN.OBGYN_ITS ---
Subjective Subjective Patient without complaints. Tolerating diet well. Minimal vaginal bleeding reported. Breast-feeding is going well. Denies flatus. Objective Data Objective Data Good urine output. Hemoglobin okay. Vital Signs: Vital Signs Temp Pulse Resp BP Pulse Ox 97.0 F L 90 16 108/58 L 98 02/05/21 08:54 02/05/21 08:54 02/05/21 08:54 02/05/21 08:54 02/05/21 08:54 Oxygen Delivery Method Room Air Weight: 155 lb Body Mass Index (BMI) 28.3 Intake & Output: Intake and Output for Last 24 Hours 02/03/21 02/04/21 02/05/21 23:59 23:59 23:59 Intake Total 4409.76 / 4409.76 1550 / 1550 Output Total 1200 / 1200 800 / 800 Balance 3209.76 / 3209.76 750 / 750 Lab / Micro Data Result Diagrams: 02/05/21 09:15 Labs: Laboratory Results - last 24 hr 02/04/21 09:20: WBC 7.9, RBC 4.42, Hgb 14.2, Hct 41.4, MCV 93.7, MCH 32.1 H, MCHC 34.3, RDW Std Deviation 44.0 H, RDW Coeff of Kareem 12.8, Plt Count 137 L, MPV 13.1 H, Immature Gran % (Auto) 0.900, Neut % (Auto) 71.2 H, Lymph % (Auto) 19.0, [place] % (Auto) 7.7, Eos % (Auto) 0.9, Baso % (Auto) 0.3, Absolute Neuts (auto) 5.7, Absolute Lymphs (auto) 1.51, Nucleated RBC % 0, Differential Comment SCANNED, Platelet Estimate ADEQUATE, Plt Morphology Comment LARGE 02/04/21 09:20: Blood Type A POSITIVE, Antibody Screen NEGATIVE 02/04/21 09:35: Urine Opiates Screen NEGATIVE, Urine Methadone Screen NEGATIVE, Ur Barbiturates Screen NEGATIVE, Ur Phencyclidine Scrn NEGATIVE, Ur Amphetamines Screen NEGATIVE, U Methamphetamin-MDMA NEGATIVE, U Benzodiazepines Scrn NEGATIVE, Urine Cocaine Screen NEGATIVE, U Cannabinoids Screen NEGATIVE, Ur Drug Screen Comment 02/05/21 09:15: WBC 12.7 H, RBC 3.74 L, Hgb 11.9 L, Hct 35.3 L, MCV 94.4, MCH 31.8, MCHC 33.7, RDW Std Deviation 44.6 H, RDW Coeff of Kareem 12.8, Plt Count 159, MPV 11.1 Micro: Microbiology 02/04/21 09:20 Nasal Secretion SARS-CoV-2 Antigen (Rapid) - Final Assessment & Plan (1) delivery delivered: PLAN: Doing well postoperative day #1 status post primary section and left ovarian cystectomy for failure to progress and ovarian cyst. Continuing present care.
[2021-02-05] MEDS: Senna/Docusate Sodium 1 Tablet PO (10:18)
[2021-02-05] MEDS: 0.9% Saline Lock 10 ML Syringe IV ×3 (12:36→18:38)
--- NOTE | 2021-02-05 16:08 | CASEMGMT ---
Addendum entered by Corrie Mandel 02/05/21 16:29: NB apgars 01/20 Corrie Mandel COLLISION WORKER ALICIA Original Note: GATITO Assessment Referral Source: [facility] Referral Reason: Late PNC Mom: Latisha Chew EDC 02/06/21 PNC Beginning at 18 weeks 39 weeks and 5 days PNC: Ceci Lyle Control: Liletta IUD Baby: Anders Purcell 02/04/21 Weight 5# 12 ounces Pediatrican: Constantine Greenfield Physican. First appointment will be at [facility] on 02/07/21 3:00pm Breast Feeding No other children Housing: Patient, Anders MILLER reside in a house Transportation: Patient reports she drives and has access to car Supplies: Patient reports she has a carseat, bed, crib, diaper and clothes Supports: Patient reports her supports are family and friend. Patient said that her family resides in [place] and the PAUL family resides in [place]. Patient said that her sister, who resides in [place], is coming to help her regularly and even will stay overnight Education: Patient reports she only completed the 8th grade due to her growing up oriental orthodox background (Mennonite). 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 Patient will be on leave for 3-4 months. 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 Patient said that she plans to work 2-3 days a week and they will get family and friend to care for the . Agency Involvement: DAVIDAS: KATRIN for [facility] WIC: SW will make referral to WIC per patient's consents. HMG: SW will make referral to [facility] per patient's consents. Patient said that she got late PNC as she had no insurance. Patient said that [facility] 7-8. She said that she found out she was at week 5-6 weeks. Patient said she went to care center for ultrasound and peace of mind. Patient said that she got ultrasound a couple of times and then when she got insurance she went to Dr. Lyle for PNC. FOB: Miles Mejía Patient gave this sheet writer permission to speak to her in the presence of the FOB. Time Together: a year and a couple months Patient said that the FOB will be involved with the at FOB is employed at [employer] as a cook. He plans to take one week off work. FOB has no other children FOB MH/DV/ AOD: Patient denied any history of MH/DV and AOD. Maternal MH history: Patient denied any history of anxiety and depression Patient was educated on Post Depression, Shaken Baby Syndrome and Safe Sleeping Patient denied any history of alcohol or drug use. GATITO made referral to [facility] and WIC per patient's wishes. SW provided patient with handout Depression, Post Depression, Anxiety support, and contact numbers for Post Support and counseling agencies. Patient looked comfortable and secure with the in the room. Patient was noticed to often look at the baby and smile while speaking to this sheet writer. GATITO spoke to DIPAK Grande who reports no concerns regarding patient and fob. Plan: Discharge Home
[2021-02-06 00:20] VITALS: BP 111/64; PULSE 93; RESP 16; TEMP 36.5; O2SAT 95
[2021-02-06] MEDS: Ibuprofen 600 MG Tablet PO ×3 (00:22→11:56)
[2021-02-06] MEDS: Acetaminophen 500 MG Tablet 1000 MG PO ×2 (03:55→10:28)
[2021-02-06 05:00] VITALS: BP 116/78; PULSE 91; RESP 18; TEMP 35.9; O2SAT 96
[2021-02-06] MEDS: oxyCODONE 5 MG Tablet PO (05:29)
[2021-02-06 08:35] VITALS: BP 119/69; PULSE 97; RESP 16; TEMP 36.4; O2SAT 95
--- NOTE | 2021-02-06 09:49 | PN.OBGYN_ITS ---
Subjective Subjective Patient without complaints. Tolerating diet well. Positive flatus. Breast- feeding going well. Ready to go home today. Objective Data Objective Data Vital Signs: Vital Signs Temp Pulse Resp BP Pulse Ox 97.6 F L 97 16 119/69 95 02/06/21 08:35 02/06/21 08:35 02/06/21 08:35 02/06/21 08:35 02/06/21 08:35 Oxygen Delivery Method Room Air Weight: 155 lb Body Mass Index (BMI) 28.3 Intake & Output: Intake and Output for Last 24 Hours 02/04/21 02/05/21 02/06/21 23:59 23:59 23:59 Intake Total 4409.76 / 4409.76 2201.67 / 2201.67 Output Total 1200 / 1200 1200 / 1200 Balance 3209.76 / 3209.76 1001.67 / 1001.67 Lab / Micro Data Result Diagrams: 02/05/21 09:15 Micro: Microbiology 02/04/21 09:20 Nasal Secretion SARS-CoV-2 Antigen (Rapid) - Final Assessment & Plan (1) delivery delivered: PLAN: Doing well postoperative day #2 status post primary section for failure to progress. Will discharge to home with routine instructions.
[2021-02-06] MEDS: Senna/Docusate Sodium 1 Tablet PO (10:28)
[2021-02-06 11:45] VITALS: BP 118/70; PULSE 88; RESP 16; TEMP 36.3; O2SAT 97
== END 2021-02-06 13:10 | disposition home or self-care (01) | DRG 540 ==
LOC: WPOUT 08:07 → WP 08:07
PROVIDERS: Obstetrics & Gynecology; Admitting Provider Obstetrics & Gynecology; Visit Provider Obstetrics & Gynecology
DX: O62.2 Other uterine inertia (principal); Z37.0 Single live birth; Z3A.39 39 weeks gestation of pregnancy; N83.202 Unspecified ovarian cyst, left side; O34.83 Maternal care for other abnormalities of pelvic organs, third trimester; Z87.891 Personal history of nicotine dependence; O76 Abnormality in fetal heart rate and rhythm complicating labor and delivery; O69.1XX0 Labor and delivery complicated by cord around neck, with compression, not applicable or unspecified
CPT/HCPCS: 59025; 59050; 80307; 84112; 85025; 85027; 86850; 86900; 86901; 87426; 88305; 88307; 99218; 99251; J7030; J7120; A4216; G0378; G0463

== ENCOUNTER → 2021-03-14 09:48 | Outpatient (CLI) | payer MEDICAID, SELFPAY ==
[2021-03-14 12:26] LABS: ALB/GLOB Ratio 0.9 RATIO (0.9-2.4); AST(SGOT) 17 U/L (15-37); Alanine Aminotransfer ALT/SGPT 29 U/L (13-56); Alkaline Phosphatase 99 U/L (45-117); Anion Gap 8 (5-15); BUN 13 mg/dL (7-18); BUN/Creat Ratio 18.2 RATIO (10-20); Calcium,Total 9.5 mg/dL (8.5-10.1); Chloride 102 mmol/L (98-107); Creatinine, Serum 0.72 mg/dL (0.55-1.02); EST Glomerular Filtration Rate 107 mL/min (>60); Est Glom Filt Rate - Afr Amer 129 mL/min (>60); Globulin 4.4 g/dL (2.2-4.2); Glucose 84 mg/dL (74-106); Protein, Total 8.4 g/dL (6.4-8.2); Sodium Level 137 mmol/L (136-145); T4 Free Direct 0.96 ng/dL (0.76-1.46); Thyroid Stim Hormone (TSH) 2.24 uIU/mL (0.358-3.74)
== END ==
PROVIDERS: Visit Provider Family Medicine
DX: R68.89 Other general symptoms and signs (principal)
CPT/HCPCS: 36415; 80053; 84439; 84443